=== PATIENT | female | born 1985 | race Caucasian/White ===

== ENCOUNTER → 2016-03-11 | Outpatient (CLI) | payer OTHER, MEDICAID ==
--- NOTE | 2016-03-11 09:08 | WOMENS IMAGING REPORT ---
EXAM DESCRIPTION: U/S ABDOMEN TOTAL COMPLETED DATE/TIME: 03/11/2016 8:01 am REASON FOR STUDY: R10.11 RUQ PAIN R10.11 RIGHT UPPER QUADRANT PAIN COMPARISON: Abdominal ultrasound 09/11/2014, 05/06/2014 CT abdomen pelvis 03/29/2014 TECHNIQUE: Dynamic and static grayscale images acquired of the abdomen and recorded on PACS. Additio nal selected color Doppler and spectral images recorded. LIMITATIONS: None. FINDINGS: PANCREAS: No masses. Visualized pancreatic duct normal caliber. LIVER: No masses. Echotexture normal. LIVER VASCULATURE: Normal directional flow of the main portal vein and hepatic veins. GALLBLADDER: No stones. Normal wall thickness. No pericholecystic fluid. ULTRASOUND-DETECTED LAMBERT'S SIGN: Negative. INTRAHEPATIC DUCTS AND COMMON DUCT: CBD and intrahepatic ducts normal caliber. No filling defects. INFERIOR VENA CAVA: Normal flow. AORTA: No aneurysm. RIGHT KIDNEY: Normal size. Normal echogenicity. No solid or suspicious masses. No hydronephros is. No calcifications. LEFT KIDNEY: Normal size. Normal echogenicity. No solid or suspicious masses. No hydronephrosi s. No calcifications. SPLEEN: Normal size. No solid masses. PERITONEAL AND PLEURAL SPACES: No ascites or effusions. OTHER: No other significant finding. TECHNICAL DOCUMENTATION: JOB ID: [id number] [employer]- All Rights Reserved
== END ==
LOC: WI 06:49
PROVIDERS: ATTEND Internal Medicine
DX: R10.11 Right upper quadrant pain (principal)
CPT/HCPCS: 76700

== ENCOUNTER → 2016-03-12 | Outpatient (CLI) | payer OTHER, MEDICAID | LOC: RAD 12:38 | PROVIDERS: ATTEND Internal Medicine | DX: R10.11 Right upper quadrant pain (principal) | CPT/HCPCS: 78227; A9537; Q9969; J2805 ==

== ENCOUNTER 2016-03-21 09:15 | Day surgery (SDC) | payer OTHER, MEDICAID ==
[~2016-03-21 09:15] MED LIST: DIPHENHYDRAMINE HCL 50 MG/ML VIAL ONE; EPINEPHRINE INJ 1 MG/10 ML DISP.SYRIN ONE; FLUMAZENIL INJ 0.5 MG/5 ML VIAL IV ONE; GLUCAGON,HUMAN RECOMB 1 MG INJ ONE; NALOXONE HCL INJ/PF 0.4 MG/1 ML SDV ONE; ONDANSETRON HCL INJ/PF 4 MG/2 ML SDV ONE; PROMETHAZINE HCL INJ 25 MG/1 ML VIAL ONE
[2016-03-21] MEDS: MIDAZOLAM 2 MG/2 ML INJ ONE ×4 (09:40→09:50)
[2016-03-21] MEDS: FENTANYL CITRATE INJ/PF 100 MCG/2 ML AMPUL ONE ×2 (09:42→09:55)
--- NOTE | 2016-03-21 10:16 | Operative Report ---
Operative Report DATE OF SURGERY: 03/21/16 Operative Report: The risks benefits and alternatives of the procedure explained to the patient in detail and informed consent is obtained that GIF Olympus video scope was inserted into the patient's mouth and hypopharynx the esophagus is identified intubated and insufflated the scope was then advanced through the esophagus stomach and duodenum retroflexion maneuver is done the esophagus stomach and first and second portions of the duodenum examined PREOPERATIVE DIAGNOSIS: Epigastric pain POSTOPERATIVE DIAGNOSIS: Gastritis status post biopsy OPERATION: EGD with biopsy SURGEON: DUNCAN AMBROSIO ANESTHESIA: Moderate Sedation - 8 mg Versed, 175 g of fentanyl. TISSUE REMOVED OR ALTERED: Gastric specimens obtained. COMPLICATIONS: None. ESTIMATED BLOOD LOSS: none. INTRAOPERATIVE FINDINGS: Normal esophagus. First and second portions of the duodenum are normal. No bleeding noted PROCEDURE: Patient tolerated procedure well. No immediate postprocedure complications are noted. Patient is discharged in good condition. Discharge date 03/21/2016. Discharge diet: Regular. Discharge activity: Regular. Follow-up in 2-3 weeks. Wait on biopsies. Patient is instructed to call the office or proceed to the emergency room if any further problems or questions.
[2016-03-21 11:02] VITALS: BP 118/79
== END 2016-03-21 11:10 | disposition home or self-care (01) ==
LOC: END 09:15
PROVIDERS: ATTEND Internal Medicine Gastroenterology
PROC: 0DB68ZX Excision of Stomach, Via Natural or Artificial Opening Endoscopic, Diagnostic (ICD-10-PCS; principal; 2016-03-21 09:30)
DX: K29.70 Gastritis, unspecified, without bleeding (principal); J45.909 Unspecified asthma, uncomplicated; F90.9 Attention-deficit hyperactivity disorder, unspecified type; F20.9 Schizophrenia, unspecified; F31.9 Bipolar disorder, unspecified; M41.9 Scoliosis, unspecified; Z87.891 Personal history of nicotine dependence; Z79.899 Other long term (current) drug therapy
CPT/HCPCS: 43239; 88305 ×2; J2250; J3010; J0171; J1200; J1610; J2310; J2405; J2550; J3490

== ENCOUNTER 2016-08-28 15:38 | Emergency (ER) | payer OTHER, MEDICAID ==
[2016-08-28 15:56] VITALS: BP 138/84
--- NOTE | 2016-08-28 16:36 | ER Document Report ---
ED Medical Screen (RME) - General Chief Complaint: Difficulty Swallowing Stated Complaint: CHEST PAIN Time Seen by Provider: 08/28/16 16:31 Notes: Patient is describing progressive difficulty swallowing since 3 AM yesterday morning. She has a history of GERD. She also had an upper endoscopy by Dr. Desir for a another problem a few months ago and he did not find any abnormality. TRAVEL OUTSIDE OF THE [place] IN LAST 30 DAYS: No COUNTRY TRAVELED TO/FROM: [place] - Related Data Allergies/Adverse Reactions: No Known Allergies Allergy (Verified 08/28/16 15:51) Past Medical History - Social History Chew tobacco use (# tins/day): No Frequency of alcohol use: None Drug Abuse: None - Past Medical History Cardiac Medical History: Denies: Hx Coronary Artery Disease, Hx Heart Attack, Hx Hypertension Pulmonary Medical History: Reports: Hx Asthma - USES AN INHALER NEEDED Denies: Hx Bronchitis, Hx COPD, Hx Pneumonia Neurological Medical History: Reports: Hx Migraine. Denies: Hx Cerebrovascular Accident, Hx Seizures - UNDETERMINED - NOT ON ANY MEDS Renal/ Medical History: Reports: Hx Ovarian Cysts. Denies: Hx Peritoneal Dialysis GI Medical History: Denies: Hx Hepatitis, Hx Hiatal Hernia, Hx Ulcer Musculoskeltal Medical History: Reports Hx Arthritis - BACK, SI JOINT Psychiatric Medical History: Reports: Hx Anxiety, Hx Bipolar Disorder, Hx Depression Infectious Medical History: Denies: Hx Hepatitis Surgical Hx: Negative Past Surgical History: Reports: Hx Appendectomy, Hx Gynecologic Surgery - D&C. Denies: Hx Hysterectomy, Hx Open Heart Surgery, Hx Pacemaker - Immunizations Immunizations up to date: Yes Hx Diphtheria, Pertussis, Tetanus Vaccination: Yes Physical Exam - Vital signs Vitals: Temp Pulse BP Pulse Ox 98.5 F 101 H 138/84 H 97 08/28/16 15:51 08/28/16 15:51 08/28/16 15:51 08/28/16 15:51 Course - Vital Signs Vital signs: Temp Pulse Resp BP Pulse Ox 98.5 F 101 H 138/84 H 97 08/28/16 15:51 08/28/16 15:51 08/28/16 15:51 08/28/16 15:51
[2016-08-28 17:21] LABS: ABSOLUTE BASOPHILS # (AUTO) 0.1 10^3/uL (0.0-0.2); ABSOLUTE EOSINOPHILS # (AUTO) 0.5 10^3/uL (0.0-0.6); ABSOLUTE LYMPHOCYTES (AUTO) 2.6 10^3/uL (0.5-4.7); ABSOLUTE MONOCYTES (AUTO) 1.1 10^3/uL (0.1-1.4); ABSOLUTE NEUT (AUTO) 9.9 10^3/uL (1.7-8.2); BASOPHILS % (AUTO) 0.5 % (0-2); EOSINOPHILS % (AUTO) 3.2 % (0-6); HEMOGLOBIN 13.6 g/dL (12.0-15.5); HGB HCT DIFFERENCE -1.2; LYMPHOCYTES % (AUTO) 18.2 % (13-45); MEAN CORPUSCULAR HEMOGLOBIN 28.5 pg (27.0-33.4); MEAN CORPUSCULAR HGB CONC 32.5 g/dL (32.0-36.0); MEAN CORPUSCULAR VOLUME 88 fl (80-97); MONOCYTES % (AUTO) 7.9 % (3-13); RED BLOOD COUNT 4.78 10^6/uL (3.72-5.28); RED CELL DISTRIBUTION WIDTH 13.3 % (11.5-14.0); SEGMENTED NEUTROPHILS % (AUTO) 70.2 % (42-78); WHITE BLOOD COUNT 14.1 10^3/uL (4.0-10.5)
[2016-08-28 17:29] LABS: ALANINE AMINOTRANSFERASE 37 U/L (9-52); ALBUMIN 3.9 g/dL (3.5-5.0); ALKALINE PHOSPHATASE 66 U/L (38-126); ANION GAP 13 (5-19); ASPARTATE AMINO TRANSFERASE 14 U/L (14-36); BILIRUBIN,DIRECT 0.3 mg/dL (0.0-0.4); BILIRUBIN,TOTAL 0.4 mg/dL (0.2-1.3); BLOOD UREA NITROGEN 8 mg/dL (7-20); CALCIUM 9.3 mg/dL (8.4-10.2); CARBON DIOXIDE 23 mmol/L (22-30); CHLORIDE 105 mmol/L (98-107); CREATININE RESULT 0.61 mg/dL (0.52-1.25); GLUCOSE 88 mg/dL (75-110); LIPASE 84.3 U/L (23-300); POTASSIUM 3.7 mmol/L (3.6-5.0); SODIUM 140.9 mmol/L (137-145)
--- NOTE | 2016-08-28 17:41 | RADIOLOGY REPORT (SQ) ---
EXAM DESCRIPTION: BARIUM SWALLOW ESOPHAGUS COMPLETED DATE/TIME: 08/28/2016 5:16 pm REASON FOR STUDY: Difficulty swallowing, even saliva and liquids. COMPARISON: CT abdomen pelvis 03/29/2014 Right upper quadrant ultrasound 03/11/2016 Hepatobiliary scan 03/12/2016 TECHNIQUE: Under fluoroscopic guidance, patient ingested thin barium, thick barium and effervescent crystals. Fluoroscopic spot images and routine radiographic images acquired and stored on PACS. 12 MM BARIUM TABLET GIVEN: No. LIMITATIONS: None. FLUOROSCOPY TIME: 15 seconds 15 series of fluoroscopic images saved to PACS. FINDINGS: NEUROMUSCULAR COORDINATION OF SWALLOW: Normal. No aspiration. ESOPHAGEAL MOTILITY: Normal peristalsis. No esophageal spasm. ESOPHAGEAL MUCOSA: Normal mucosa without masses or ulceration. GASTRO-ESOPHAGEAL JUNCTION: Small hiatal hernia. Mild gastroesophageal reflux NON-GI TRACT STRUCTURES: No significant finding. OTHER: Limited imaging of the stomach was performed. Prompt gastric emptying. There is loss of bertha jeff folds, question atrophic gastritis. Normal pylorus and duodenum. No gross evidence of gastric u lcer IMPRESSION: Small hiatal hernia with gastroesophageal reflux. No distal esophageal stricture. No i mpacted food bolus. COMMENT: Quality ID [id number]: Final reports for procedures using fluoroscopy that document radiation exp osure indices, or exposure time and number of fluorographic images (if radiation exposure indices are not available) TECHNICAL DOCUMENTATION: JOB ID: [id number] [employer]- All Rights Reserved
--- NOTE | 2016-08-28 17:54 | ER Document Report ---
ED General - General Chief Complaint: Difficulty Swallowing Stated Complaint: CHEST PAIN Time Seen by Provider: 08/28/16 16:31 Notes: Patient is describing progressive difficulty swallowing since 3 AM yesterday morning. She says she is having difficulty even swallowing saliva and water. She is not regurgitating these liquids and she is not actually choking on them, just having difficulty swallowing them because of pain they seem to produce in the front of her chest. She has a history of GERD although not on any current medications. She also just recently had an upper endoscopy by Dr. Desir for a another problem a few months ago and he did not find any abnormality denies any vomiting or diarrhea. When she takes a deep breath she notes some of this chest pain in the front of the chest. Patient has no history of any heart disease. PMH: control implant. Appendectomy. Diagnostic laparoscopy years ago that showed mild endometriosis. TRAVEL OUTSIDE OF THE [place] IN LAST 30 DAYS: No COUNTRY TRAVELED TO/FROM: [place] - Related Data Allergies/Adverse Reactions: No Known Allergies Allergy (Verified 08/28/16 15:51) Past Medical History - Social History Smoking Status: Never Smoker Chew tobacco use (# tins/day): No Frequency of alcohol use: None Drug Abuse: None Family History: Arthritis, Malignancy, DM, Reviewed & Not Pertinent Patient has suicidal ideation: No Patient has homicidal ideation: No Pulmonary Medical History: Reports: Hx Asthma - USES AN INHALER NEEDED Neurological Medical History: Reports: Hx Migraine Renal/ Medical History: Reports: Hx Ovarian Cysts GI Medical History: Denies: Hx Hepatitis, Hx Hiatal Hernia, Hx Ulcer Musculoskeltal Medical History: Reports Hx Arthritis - BACK, SI JOINT Psychiatric Medical History: Reports: Hx Anxiety, Hx Bipolar Disorder, Hx Depression Surgical Hx: Negative Past Surgical History: Reports: Hx Appendectomy, Hx Gynecologic Surgery - D&C - Immunizations Immunizations up to date: Yes Hx Diphtheria, Pertussis, Tetanus Vaccination: Yes Review of Systems - Review of Systems Notes: REVIEW OF SYSTEMS: CONSTITUTIONAL : Denies fever. EENT: Denies eye, ear, nose or mouth or throat pain or other symptoms. CARDIOVASCULAR: See HPI regarding chest pain. RESPIRATORY: Denies cough, chest congestion, or shortness of breath. GASTROINTESTINAL: Denies abdominal pain or nausea, vomiting, or diarrhea. GENITOURINARY: Denies difficulty or painful urinating, urinary frequency, blood in urine. MUSCULOSKELETAL: Denies back or neck pain. Denies joint pain or swelling. Denies leg pains. SKIN: Denies rash or skin lesions. NEUROLOGICAL: Denies LOC or altered mental status. Denies headache. Denies sensory loss or motor deficits. ALL OTHER SYSTEMS REVIEWED AND NEGATIVE. Physical Exam - Vital signs Vitals: Temp Pulse BP Pulse Ox 98.5 F 101 H 138/84 H 97 08/28/16 15:51 08/28/16 15:51 08/28/16 15:51 08/28/16 15:51 Interpretation: Normal - Notes Notes: PHYSICAL EXAMINATION: GENERAL: Well-appearing, in no acute distress. Anxious HEAD: Atraumatic, normocephalic. EYES: Pupils equal round and reactive to light, extraocular movements intact. ENT: oropharynx clear without exudates. Moist mucous membranes. NECK: Normal range of motion, supple. LUNGS: Breath sounds clear and equal bilaterally. No chest wall tenderness to press. HEART: Regular rate and rhythm without murmurs. ABDOMEN: Soft, nontender. No guarding or rebound. BACK: No tenderness throughout entire back. EXTREMITIES: Normal range of motion without pain. Negative Homans bilaterally. NEUROLOGICAL: Normal speech, normal gait. Normal sensory, motor, and reflex exams. Awake, alert, and oriented x3. Cranial nerves normal. SKIN: Warm, dry, no rashes. Course - Re-evaluation Re-evalutation: 08/28/16 20:50 Patient underwent a barium swallow which shows a hiatal hernia. Not sure if this is actually the source of her symptoms, but otherwise her workup is been essentially normal. - Vital Signs Vital signs: Temp Pulse Resp BP Pulse Ox 98.5 F 101 H 138/84 H 97 08/28/16 15:51 08/28/16 15:51 08/28/16 15:51 08/28/16 15:51 - Laboratory Result Diagrams: 08/28/16 16:50 08/28/16 16:50 Laboratory results interpreted by me: 08/28/16 16:50 WBC 14.1 H Absolute Neutrophils 9.9 H - Diagnostic Test Radiology reviewed: Image reviewed, Reports reviewed - Barium swallow shows hiatal hernia. - EKG Interpretation by Me EKG shows normal: Sinus rhythm Rate: Normal Rhythm: NSR Discharge - Discharge Clinical Impression: Chest pain, non-cardiac, Hiatal hernia with GERD Condition: Stable Disposition: HOME, SELF-CARE Additional Instructions: CHEST PAIN OF UNCLEAR CAUSE: The exact cause of your chest pain isn't clear. Fortunately, there is no evidence of a dangerous medical condition. Further testing may be required to find the source of the pain. Most often, we find that this pain is coming from the chest wall -- the muscles or rib joints in the chest. But chest pain can come from the lung and lung lining, the esophagus, the heart valves or heart lining, and even the stomach or gallbladder. Rest. Eat lightly until the pain is gone. We may prescribe medicine for pain and inflammation. You should call the physician immediately if the pain radiates to the shoulder, jaw or arms; if you start to run a fever or develop a cough; or if you develop shortness of breath, or other new or alarming symptoms. NORMAL EXAM AND WORKUP: At this time, your examination and workup show no significant abnormality. No significant abnormal physical findings were noted. All laboratory, EKG, and imaging (x-ray, CT scans, ultrasound) studies that were ordered show no significant abnormality. Although your examination and all studies that were ordered showed no significant abnormal finding, there are no examinations and no studies that are 100% accurate. There is always the possibility that some abnormality could exist and not be detected with physical examination or within the limits and capabilities of laboratory and other studies. You should return or follow up as you were instructed on your visit today for further evaluation if your symptoms do not resolve. Your barium swallow shows that you have a hiatal hernia. This may be the source of your discomfort and symptoms. I am prescribing some Prilosec and recommend you follow the following instructions for reducing acid in your esophagus and see if that improves her symptoms. ACID REFLUX DISEASE (GERD): Gastro-Esophageal Reflux Disease (GERD) is caused by stomach acid refluxing back up into the esophagus. The valve at the end of the esophagus may be weak. This is common in persons with a hiatal hernia. GERD symptoms can include indigestion, chest pain, heartburn, or food "sticking." Certain foods, alcohol, and aspirin can make GERD worse. Treatment depends on the severity. Usually, antacids or acid-suppressing medicines are used. When the esophagus is acutely inflamed, the physician will often prescribe membrane-protective drugs such as Carafate. Some patients benefit from medication such as Reglan that tightens the valve at the top of the stomach. Avoid those foods that bring on your symptoms. For many people, these foods are coffee, chocolate, onions, garlic, and carbonated drinks. Don't use alcohol, aspirin, caffeine, or tobacco. Don't eat late at night -- within 4 hours of bedtime. Don't over-eat. If necessary, elevate the head of your bed about 4 inches so that stomach acid will not roll up into your esophagus. Call the doctor if you develop severe chest pain, inability to swallow fluids, fever, or worsening symptoms. ANTACID THERAPY: You have been instructed to start antacid therapy. Antacids directly neutralize stomach acid. This is useful for acid irritation of the esophagus, gastritis, and ulcers. You should take two tablespoons of antacid one hour after each meal and three hours after each meal. If you are not eating, take the antacid every two hours. If you are using a concentrate (such as Maalox TC), use only one tablespoon. Many antacids affect the bowels. The most common problem is diarrhea. In this case, a pure aluminum hydroxide antacid (such as AlternaGel) can be substituted for some or all doses. If the problem is constipation, add a teaspoon of Milk of Magnesia to each dose. Call the doctor if you experience continued diarrhea or constipation, or if you develop lightheadedness, bloody stool or vomitus, severe abdominal pain, or black stool. PRILOSEC (ACID PUMP INHIBITOR): Prilosec (omeprazole) is an acid-pump inhibitor. It blocks the secretion of hydrogen ions in the acid-producing cells of the stomach. Prilosec keeps your stomach from making acid. Take all medication as prescribed, even after the pain is gone. Regular antacids may be added as needed if you have symptoms while taking this medicine. There are usually no side effects from this medication. Contact your doctor if there is fever, rash, yellow skin color, increasing abdominal pain, weakness, or unusual bruising. Return at once if you develop lightheadedness, black or bloody stool, or bloody vomitus. FOLLOW-UP CARE: If you have been referred to a physician for follow-up care, call the physician s office for an appointment as you were instructed or within the next two days. If you experience worsening or a significant change in your symptoms, notify the physician immediately or return to the Emergency Department at any time for re-evaluation. Prescriptions: Omeprazole Magnesium [Prilosec Otc] 20 mg PO DAILY #30 tablet.dr Referrals: PRANEETH NAIK MD [Primary Care Provider] - Follow up as needed
--- NOTE | 2016-08-28 18:02 | EKG REPORT ---
SEVERITY:- BORDERLINE ECG - SINUS RHYTHM PROBABLE LEFT ATRIAL ABNORMALITY INFERIOR Q WAVES, PROBABLY NORMAL VARIATION : Confirmed by: Joni Dominguez MD 28-Aug-2016 18:01:54
== END 2016-08-28 17:59 | disposition home or self-care (01) ==
LOC: ER 15:38
DX: K44.9 Diaphragmatic hernia without obstruction or gangrene (principal); K21.9 Gastro-esophageal reflux disease without esophagitis; R13.10 Dysphagia, unspecified; R07.89 Other chest pain
CPT/HCPCS: 36415; 74220; 80053; 83690; 85025; 93005; 93010; 99285

== ENCOUNTER → 2016-12-02 | Outpatient (CLI) | payer MEDICAID ==
--- NOTE | 2016-12-02 09:33 | RADIOLOGY REPORT ---
STRESS TEST REPORT PATIENT NAME: ROBERT ALBERTO ROOM#: DATE OF SERVICE: 12/02/2016 AGE: 31Y ORDER#: [id number] REFERRING MD: MARQUES PAUL M.D. INDICATION: Stabbing chest pains with abnormal EKG with abnormal echo in the interventricular septum. Chest pain is described as a pinching, stabbing pain and a dull ache. Coronary risk factors include family history of [place]. PROCEDURE PERFORMED: EKG treadmill stress test. REPORT Significant physical findings prior to stress testing showed a blood pressure of 119/76 and a heart rate of 88 beats per minute with no ectopy. Auscultation of the heart showed an S4 with no murmur. Resting 12-lead EKG showed normal sinus rhythm, 84 beats per minute, diffuse nonspecific ST-T changes especially in the inferior leads. PROCEDURE: Patient exercised on the standard [place] protocol. She walked a total of 7 minutes, reaching a peak heart rate of 171 beats per minute, which is 90% of the maximum predicted heart rate for age. The test was stopped because of maximum effort, heart rate achieved. Patient described symptoms of dull, aching chest pains prior to exercise test underneath her left breast. With increase in exercise, her chest dull ache went up to a 3/10 intensity but dissipated at around 4 minutes at a heart rate of 144, then recurred and was 3 going up 4/10 at peak exercise. Postexercise chest pain dissipated 1 minute and then returned to a dull ache. Exercise ECG showed no increased ST changes. Arrhythmias seen were PACs. Blood pressure response was normal. The peak exercise blood pressure was 156/75, double product 26 K. SUMMARY OF FINDINGS/IMPRESSION: 1. Chest pain symptoms at baseline prior to exercise stress, this increased to a maximum 4/10 intensity during exercise. The chest pains waxed and waned, totally dissipating 2 minutes postexercise. 2. Baseline ST changes diffuse, but especially in the inferior leads, with no increase in ST depressions on increasing exercise. 3. Normal blood pressure response. 4. PAC arrhythmias but no exercise induced atrial fibrillation. 5. Good exercise tolerance, good aerobic capacity, negative adequate EKG treadmill stress test. Recommend consider exercise MPI. INTERPRETING PHYSICIAN: MARQUES PAUL M.D. /: 1211M TT: 0906 ID: [id number] /: [id number] TD: [id number] JOB: [id number] cc:PRANEETH NAIK M.D., ANDRE KS M.D. > MTDReyes
== END ==
LOC: SP 07:48
PROVIDERS: ATTEND Internal Medicine Cardiovascular Disease
DX: R07.9 Chest pain, unspecified (principal)
CPT/HCPCS: 93017

== ENCOUNTER 2017-01-16 15:36 | Emergency (ER) | payer MEDICAID ==
--- NOTE | 2017-01-16 16:29 | ER Document Report ---
ED Medical Screen (RME) - General Chief Complaint: Abdominal Pain Stated Complaint: ABDOMINAL PAIN Time Seen by Provider: 01/16/17 16:24 Notes: Patient is having pain in her right upper quadrant into her right back for the past 3 weeks. She is also had this pain in the past and has had 2 ultrasounds of the gallbladder that were negative and had a negative HIDA scan. Her primary care provider is trying to get her set up to get a another imaging study , another ultrasound, of the gallbladder. Patient says she is not having any vomiting but has had diarrhea for the past 2 days. Denies any fever. Has had her appendix removed. Patient has been on amoxicillin for a chest cold and sinuses for the past week. Does not smoke. TRAVEL OUTSIDE OF THE [place] IN LAST 30 DAYS: No COUNTRY TRAVELED TO/FROM: [place] - Related Data Allergies/Adverse Reactions: No Known Allergies Allergy (Verified 01/16/17 15:39) Home Medications: Current Home Medications Oxycodone Myristate [Xtampza ER] 27 mg PO BID 01/16/17 [History] Past Medical History - Social History Chew tobacco use (# tins/day): No Frequency of alcohol use: None Drug Abuse: None - Past Medical History Cardiac Medical History: Denies: Hx Coronary Artery Disease, Hx Heart Attack, Hx Hypertension Pulmonary Medical History: Reports: Hx Asthma - USES AN INHALER NEEDED Denies: Hx Bronchitis, Hx COPD, Hx Pneumonia Neurological Medical History: Reports: Hx Migraine. Denies: Hx Cerebrovascular Accident, Hx Seizures - UNDETERMINED - NOT ON ANY MEDS Renal/ Medical History: Reports: Hx Ovarian Cysts. Denies: Hx Peritoneal Dialysis GI Medical History: Denies: Hx Hepatitis, Hx Hiatal Hernia, Hx Ulcer Musculoskeltal Medical History: Reports Hx Arthritis - BACK, SI JOINT Psychiatric Medical History: Reports: Hx Anxiety, Hx Bipolar Disorder, Hx Depression Infectious Medical History: Denies: Hx Hepatitis Past Surgical History: Reports: Hx Appendectomy, Hx Gynecologic Surgery - D&C. Denies: Hx Hysterectomy, Hx Open Heart Surgery, Hx Pacemaker - Immunizations Immunizations up to date: Yes Hx Diphtheria, Pertussis, Tetanus Vaccination: Yes Physical Exam - Vital signs Vitals: Temp Pulse Resp BP Pulse Ox 98.9 F 104 H 20 133/85 H 99 01/16/17 15:40 01/16/17 15:40 01/16/17 15:40 01/16/17 15:40 01/16/17 15:40 Course - Vital Signs Vital signs: Temp Pulse Resp BP Pulse Ox 98.9 F 104 H 20 133/85 H 99 01/16/17 15:40 01/16/17 15:40 01/16/17 15:40 01/16/17 15:40 01/16/17 15:40
[2017-01-16 17:09] LABS: ABSOLUTE BASOPHILS # (AUTO) 0.1 10^3/uL (0.0-0.2); ABSOLUTE EOSINOPHILS # (AUTO) 0.5 10^3/uL (0.0-0.6); ABSOLUTE LYMPHOCYTES (AUTO) 3.2 10^3/uL (0.5-4.7); ABSOLUTE MONOCYTES (AUTO) 0.8 10^3/uL (0.1-1.4); ABSOLUTE NEUT (AUTO) 6.6 10^3/uL (1.7-8.2); BASOPHILS % (AUTO) 1.2 % (0-2); EOSINOPHILS % (AUTO) 4.1 % (0-6); HEMATOCRIT 40.6 % (36.0-47.0); HEMOGLOBIN 14.1 g/dL (12.0-15.5); HGB HCT DIFFERENCE 1.7; LYMPHOCYTES % (AUTO) 28.4 % (13-45); MEAN CORPUSCULAR HEMOGLOBIN 30.3 pg (27.0-33.4); MEAN CORPUSCULAR HGB CONC 34.7 g/dL (32.0-36.0); MEAN CORPUSCULAR VOLUME 87 fl (80-97); MONOCYTES % (AUTO) 7.2 % (3-13); RED BLOOD COUNT 4.65 10^6/uL (3.72-5.28); SEGMENTED NEUTROPHILS % (AUTO) 59.1 % (42-78); WHITE BLOOD COUNT 11.2 10^3/uL (4.0-10.5)
[2017-01-16 17:27] LABS: APPEARANCE,URINE SLIGHTLY-CLOUDY; BILIRUBIN,URINE NEGATIVE (NEGATIVE); CALCIUM OXALATE CRYSTALS,URINE MODERATE /HPF; GLUCOSE, URINE NEGATIVE (NEGATIVE); KETONES,URINE NEGATIVE (NEGATIVE); LEUKOCYTE ESTERASE,URINE NEGATIVE (NEGATIVE); NITRITE,URINE NEGATIVE (NEGATIVE); PROTEIN,URINE NEGATIVE (NEGATIVE); URINE SPECIFIC GRAVITY 1.024; UROBILINOGEN,URINE NEGATIVE mg/dL (<2.0)
[2017-01-16 17:29] LABS: ALANINE AMINOTRANSFERASE 87 U/L (9-52); ALBUMIN 4.1 g/dL (3.5-5.0); ALKALINE PHOSPHATASE 84 U/L (38-126); ANION GAP 15 (5-19); ASPARTATE AMINO TRANSFERASE 39 U/L (14-36); BILIRUBIN,DIRECT 0.3 mg/dL (0.0-0.4); BILIRUBIN,TOTAL 0.3 mg/dL (0.2-1.3); BLOOD UREA NITROGEN 10 mg/dL (7-20); CALCIUM 9.6 mg/dL (8.4-10.2); CARBON DIOXIDE 24 mmol/L (22-30); CHLORIDE 105 mmol/L (98-107); CREATININE RESULT 0.64 mg/dL (0.52-1.25); GLUCOSE 91 mg/dL (75-110); LIPASE 142.9 U/L (23-300); POTASSIUM 4.1 mmol/L (3.6-5.0); SODIUM 144.4 mmol/L (137-145); TOTAL PROTEIN 6.6 g/dL (6.3-8.2)
--- NOTE | 2017-01-16 18:35 | ER Document Report ---
ED GI/ - General Mode of Arrival: Ambulatory Information source: Patient TRAVEL OUTSIDE OF THE [place] IN LAST 30 DAYS: No COUNTRY TRAVELED TO/FROM: [place] [facility] Patient complains to provider of: Abdominal pain, Diarrhea Location: [facility] <LATASHA WELLS - Last Filed: 01/16/17 19:48> <MOHANMINDIPRIMITIVO - Last Filed: 01/16/17 22:11> - General Chief Complaint: Abdominal Pain Stated Complaint: ABDOMINAL PAIN Time Seen by Provider: 01/16/17 16:24 Notes: Patient is a 31 year old female who presents to the emergency department complaining of right upper quadrant abdominal pain and right flank pain onset 5 weeks ago. Patients associated symptoms include diarrhea onset 2 days ago and decreased appetite. Patients symptoms are exacerbated by movement and sitting up. Patient states that she has had past ultrasounds of the gallbladder that appeared negative as well as a negative HIDA scan. Patients PCP set up an appointment on Thursday to have more imaging done on her gallbladder. Patient states that she has had diarrhea 7x today that she describes as explosive and watery. Patient denies any vomiting or fevers. Patient is currently taking Amoxicilin and Tessalon Perles for a chest cold. (LATASHA WELLS) - Related Data Allergies/Adverse Reactions: No Known Allergies Allergy (Verified 01/16/17 15:39) Home Medications: Current Home Medications Oxycodone Myristate [Xtampza ER] 27 mg PO BID 01/16/17 [History] Past Medical History - General Information source: Patient - Social History Smoking Status: Never Smoker Chew tobacco use (# tins/day): No Frequency of alcohol use: None Drug Abuse: None Family History: Arthritis, Malignancy, DM, Reviewed & Not Pertinent Patient has suicidal ideation: No Patient has homicidal ideation: No Pulmonary Medical History: Reports: Hx Asthma - USES AN INHALER NEEDED Neurological Medical History: Reports: Hx Migraine Renal/ Medical History: Reports: Hx Ovarian Cysts Musculoskeltal Medical History: Reports Hx Arthritis - BACK, SI JOINT Psychiatric Medical History: Reports: Hx Anxiety, Hx Bipolar Disorder, Hx Depression Past Surgical History: Reports: Hx Appendectomy, Hx Gynecologic Surgery - D&C - Immunizations Immunizations up to date: Yes Hx Diphtheria, Pertussis, Tetanus Vaccination: Yes <LATASHA WELLS - Last Filed: 01/16/17 19:48> Review of Systems - Review of Systems Constitutional: No symptoms reported EENT: No symptoms reported Cardiovascular: No symptoms reported Respiratory: No symptoms reported Gastrointestinal: See HPI, Abdominal pain, Diarrhea, Poor appetite Genitourinary: See HPI, Flank pain - right Female Genitourinary: No symptoms reported Musculoskeletal: No symptoms reported Skin: No symptoms reported Hematologic/Lymphatic: No symptoms reported Neurological/Psychological: No symptoms reported -: Yes All other systems reviewed and negative <LATASHA WELLS - Last Filed: 01/16/17 19:48> Physical Exam <LATASHA WELLS - Last Filed: 01/16/17 19:48> <PRIMITIVO AGUAYO - Last Filed: 01/16/17 22:11> - Vital signs Vitals: Temp Pulse Resp BP Pulse Ox 98.9 F 104 H 20 133/85 H 99 01/16/17 15:40 01/16/17 15:40 01/16/17 15:40 01/16/17 15:40 01/16/17 15:40 - Notes Notes: GENERAL: Alert, interacts well. No acute distress. HEAD: Normocephalic, atraumatic. EYES: Pupils equal, round, and reactive to light. Extraocular movements intact. ENT: Oral mucosa moist, tongue midline. Nares patent, no nasal septal hematoma, TM's intacts. Post nasal drip and cobblestoning. Clear rhinorrhea NECK: Full range of motion. Supple. Trachea midline. LUNGS: Clear to auscultation bilaterally, no wheezes, rales, or rhonchi. No respiratory distress. Dry cough. HEART: Mild tachycardia. No murmurs, gallops, or rubs. ABDOMEN: Soft, RUQ tender to palpation. Non-distended. Bowel sounds present in all 4 quadrants. Obese. + [place] Sign. EXTREMITIES: Moves all 4 extremities spontaneously. No edema, radial and dorsalis pedis pulses 2/4 bilaterally. No cyanosis. NEUROLOGICAL: Alert and oriented x3. Normal speech. PSYCH: Normal affect, normal mood. SKIN: Warm, dry, normal turgor. No rashes or lesions noted. (LATASHA WELLS) Course - Laboratory Result Diagrams: 01/16/17 16:47 01/16/17 16:47 <LATASHA WELLS - Last Filed: 01/16/17 19:48> - Laboratory Result Diagrams: 01/16/17 16:47 01/16/17 16:47 <PRIMITIVO AGUAYO - Last Filed: 01/16/17 22:11> - Re-evaluation Re-evalutation: 01/16/17 21:25 CBC shows slight leukocytosis 11.2, CMP unremarkable with the exception of minimally elevated LFTs, lipase normal, hCG negative, urinalysis shows small blood, 4 RBCs. Moderate calcium oxalate crystals, I did perform a renal protocol CAT scan to look for kidney stone, there was no evidence of kidney stone or pancreatitis, gallbladder was contracted and appeared normal on the CAT scan, appendix was surgically absent, there was a large amount of stool in the ascending and transverse colon, no acute explanation for her pain was seen on CAT scan. Gallbladder ultrasound was performed given the location of the pain and the tenderness in the right upper quadrant on examination, there was no evidence of gallstones, gallbladder wall thickening or pericholecystic fluid on the ultrasound. Discussed with patient that we have no cause for her acute pain today, no evidence of anything that would need antibiotics or surgery. Discussed with patient the importance of following up with a filament tester as an outpatient as she has had her gallbladder image multiple times and has always been normal I seriously doubt that this pain is coming from her gallbladder. Patient may wish to consider a colonoscopy at some point but for her chronic intermittent right upper quadrant abdominal pain that continues to recur patient will need further workup as an outpatient. Recommended a trial of antacids and stool softeners which patient is only somewhat interested in trying. Patient will be discharged home. 01/16/17 21:27 For the patient's cough and nasal congestion I recommend she use over-the- counter decongestants, she hardly takes Tessalon Perles and she should use nasal saline rinses as well. Patient's primary care physician already started her on amoxicillin. I see no indication of bacterial infection at this time, no indication to change to a different antibiotic particularly since I do not think this is bacterial I think it is viral. (PRIMITIVO AGUAYO) - Vital Signs Vital signs: Temp Pulse Resp BP Pulse Ox 99.4 F 93 16 146/96 H 98 01/16/17 21:38 01/16/17 21:38 01/16/17 21:38 01/16/17 21:38 01/16/17 21:38 - Laboratory Laboratory results interpreted by me: 01/16/17 01/16/17 01/16/17 16:47 16:47 16:47 WBC 11.2 H AST 39 H ALT 87 H Urine Blood SMALL H Discharge <LATASHA WELLS - Last Filed: 01/16/17 19:48> <PRIMITIVO AGUAYO - Last Filed: 01/16/17 22:11> - Discharge Clinical Impression: Right upper quadrant abdominal pain of unknown etiology, Upper respiratory infection with cough and congestion Hypertension Qualifiers: Hypertension type: unspecified Qualified Code(s): I10 - Essential (primary) hypertension Condition: Stable Disposition: HOME, SELF-CARE Additional Instructions: Please dissolve 1 scoop of MiraLAX in a glass of water once a day to treat constipation. You may increase to twice a day if needed to create soft bowel movements and you may decrease to every other day if you develop diarrhea. Please use nasal saline rinses such as a NetiPot or NeilMed Sinus Rinses. Please consider continuing to follow-up with Dr. Desir as an outpatient. Please continue using the Tessalon Perles for cough. Forms: Elevated Blood Pressure Referrals: PRANEETH NAIK MD [Primary Care Provider] - Follow up in 1 week DUNCAN DESIR MD [ACTIVE STAFF] - Follow up in 1 month Scribe Attestation: 01/16/17 22:11 I personally performed the services described in the documentation, reviewed and edited the documentation which was dictated to the scribe in my presence, and it accurately records my words and actions. (PRIMITIVO AGUAYO) Scribe Documentation - Scribe Written by Scribe:: Santiago Loomis, 01/16/2017 19:12 acting as scribe for :: Ursula <LATASHA WELLS - Last Filed: 01/16/17 19:48>
--- NOTE | 2017-01-16 19:42 | RADIOLOGY REPORT (SQ) ---
EXAM DESCRIPTION: CT LTD RENAL STONE PROTOCOL ON COMPLETED DATE/TIME: 01/16/2017 7:18 pm REASON FOR STUDY: RUQ pain, +brooks's sign COMPARISON: Hepatobiliary scan 03/12/2016 Abdominal ultrasound 03/11/2016 CT abdomen pelvis 03/29/2014 TECHNIQUE: CT scan of the abdomen and pelvis performed without intravenous or oral contrast. Images reviewed with lung, soft tissue, and bone windows. Reconstructed coronal and sagittal MPR images revi ewed. All images stored on PACS. All CT scanners at this facility use dose modulation, iterative reconstruction, and/or weight based d osing when appropriate to reduce radiation dose to as low as reasonably achievable (ALARA). [facility]: Dose Right [facility]: CareDose [facility]: Dose Right [facility]: Teradose 4D [facility]: [employer]ics RADIATION DOSE: CT Rad equipment meets quality standard of care and radiation dose reduction techniq ues were employed. CTDIvol: 17.5 mGy. DLP: 965 mGy-cm.mGy. LIMITATIONS: None. FINDINGS: LOWER CHEST: Small hiatal hernia. Lung bases clear. NON-CONTRASTED LIVER, SPLEEN, ADRENALS: Evaluation limited by lack of IV contrast. No identified sign ificant masses. PANCREAS: No masses. No peripancreatic inflammatory changes. GALLBLADDER: Contracted. No radiopaque stones. No pericholecystic fluid by CT. RIGHT KIDNEY AND URETER: No suspicious masses. Assessment limited by lack of IV contrast. No signif icant calcifications. No hydronephrosis or hydroureter. LEFT KIDNEY AND URETER: No suspicious masses. Assessment limited by lack of IV contrast. No signifi cant calcifications. No hydronephrosis or hydroureter. AORTA AND RETROPERITONEUM: No aneurysm. No retroperitoneal masses or adenopathy. BOWEL AND PERITONEAL CAVITY: No obvious masses or inflammatory changes. No free fluid. Large amount of stool in the ascending and transverse colon. APPENDIX: Surgically absent PELVIS, BLADDER, AND ABDOMINAL WALL:No abnormal masses. No free fluid. Bladder normal. Normal size f emale pelvic organs BONES: No significant findings. OTHER: Battery pack for a neurostimulator over the left gluteal region. IMPRESSION: Large amount of stool in the ascending and transverse colon. Contracted gallbladder, no gross radiodense stones COMMENT: Quality ID # [id number]: Final reports with documentation of one or more dose reduction techniques (e.g., Automated exposure control, adjustment of the mA and/or kV according to patient size, use of iterative reconstruction technique) TECHNICAL DOCUMENTATION: JOB ID: [id number] [employer]- All Rights Reserved
--- NOTE | 2017-01-16 20:52 | RADIOLOGY REPORT (SQ) ---
EXAM DESCRIPTION: U/S ABDOMEN LIMITED W/O DOP COMPLETED DATE/TIME: 01/16/2017 8:06 pm REASON FOR STUDY: right flank pain, small hematuria COMPARISON: CT abdomen pelvis 01/16/2017 Abdominal ultrasound 03/11/2016, 09/11/2014 TECHNIQUE: Dynamic and static grayscale images acquired of the abdomen and recorded on PACS. Additio nal selected color Doppler and spectral images recorded. LIMITATIONS: Midline upper abdominal bowel gas FINDINGS: PANCREAS: Not well seen LIVER: No masses. Echotexture normal. LIVER VASCULATURE: Normal directional flow of the main portal vein and hepatic veins. GALLBLADDER: No stones. Normal wall thickness. No pericholecystic fluid. ULTRASOUND-DETECTED LAMBERT'S SIGN: Negative. INTRAHEPATIC DUCTS AND COMMON DUCT: CBD and intrahepatic ducts normal caliber. No filling defects. INFERIOR VENA CAVA: Normal flow. AORTA: No aneurysm. RIGHT KIDNEY: Normal size. Normal echogenicity. No solid or suspicious masses. No hydronephrosis. No calcifications. PERITONEAL AND RIGHT PLEURAL SPACE: No ascites or effusions. OTHER: No other significant findings. IMPRESSION: Pancreas not well seen No gallstones, gallbladder wall thickening, or pericholecystic fluid No right-sided hydronephrosis. TECHNICAL DOCUMENTATION: JOB ID: [id number] [employer]- All Rights Reserved
[2017-01-16 21:38] VITALS: BP 146/96
== END 2017-01-16 21:38 | disposition home or self-care (01) ==
LOC: ER 15:36
DX: R10.11 Right upper quadrant pain (principal); J06.9 Acute upper respiratory infection, unspecified; I10 Essential (primary) hypertension; R19.7 Diarrhea, unspecified
CPT/HCPCS: 36415; 76380; 76705; 80053; 81001; 83690; 84703; 85025; 99284

== ENCOUNTER → 2017-03-13 | Outpatient (CLI) | payer BC, MEDICAID, OTHER ==
--- NOTE | 2017-03-15 16:05 | RADIOLOGY REPORT (SQ) ---
EXAM DESCRIPTION: MRI HEAD COMBO COMPLETED DATE/TIME: 03/13/2017 9:45 pm REASON FOR STUDY: HEMORRHAGE IN OPTIC NERVE SHEATH, RIGHT EYE H47.021 HEMORRHAGE IN OPTIC NERVE SHE ATH, RIGHT EYE COMPARISON: CT brain 01/31/2014 TECHNIQUE: Multiplanar imaging includes noncontrasted T1, T2, FLAIR, diffusion with ADC map and post gadolinium contrast T1 sequences. Images stored on PACS. CONTRAST TYPE AND DOSE: 20 mL Multihance. RENAL FUNCTION: GFR > 60. LIMITATIONS: Routine brain protocol, thin section imaging through the orbits was not obtained. FINDINGS: ANATOMY: No anomalies. Normal vascular flow voids. Pituitary fossa normal. CSF SPACES: Normal in size and contour. No hemorrhage. CEREBRUM: Sulci and gyri normal in size and contour. Normal white matter signal on FLAIR imaging. No evidence of hemorrhage, mass, or extraaxial fluid collection. No abnormal enhancement post contrast. POSTERIOR FOSSA: No signal alteration. No hemorrhage. No edema, masses, or mass effect. Internal dionisio tory canals, cerebellopontine angles, mastoids normal. No enhancing lesions. No abnormal enhancement post contrast. DIFFUSION IMAGING: Negative for acute or subacute infarction. ORBITS: No masses. Globes normal. PARANASAL SINUSES: No fluid levels. Mucosa normal. OTHER: No other significant finding. IMPRESSION: NORMAL MRI OF THE BRAIN WITHOUT AND WITH INTRAVENOUS GADOLINIUM CONTRAST. EVIDENCE OF ACUTE STROKE: NO. TECHNICAL DOCUMENTATION: JOB ID: [id number] [employer]- All Rights Reserved
== END ==
LOC: RAD 20:02
PROVIDERS: ATTEND Family Medicine
DX: H47.021 Hemorrhage in optic nerve sheath, right eye (principal)
CPT/HCPCS: 70553; A9577

== ENCOUNTER → 2017-03-24 | Outpatient (CLI) | payer MEDICAID ==
[~2017-03-24] MED LIST changes: -DIPHENHYDRAMINE HCL 50 MG/ML VIAL ONE; -EPINEPHRINE INJ 1 MG/10 ML DISP.SYRIN ONE; -FLUMAZENIL INJ 0.5 MG/5 ML VIAL IV ONE; -GLUCAGON,HUMAN RECOMB 1 MG INJ ONE; -NALOXONE HCL INJ/PF 0.4 MG/1 ML SDV ONE; -ONDANSETRON HCL INJ/PF 4 MG/2 ML SDV ONE; -PROMETHAZINE HCL INJ 25 MG/1 ML VIAL ONE; +REGADENOSON INJ 0.4 MG/5 ML DISP.SYRIN IV ONE
--- NOTE | 2017-03-24 22:08 | RADIOLOGY REPORT ---
STRESS TEST REPORT PATIENT NAME: ROBERT ALBERTO ROOM#: DATE OF SERVICE: 03/24/2017 AGE: 32Y ORDER#: [id number] REFERRING MD: MARQUES PAUL M.D. TEST PERFORMED: Rest/stress single-isotope Cardiolite SPECT imaging with IV Lexiscan stress and gated SPECT imaging. INDICATION: For assessment of chest pains. CLINICAL HISTORY: This 32-year-old female with no known coronary artery disease has coronary risk factors of family history of heart disease, no personal history of hypercholesterolemia, diabetes, hypertension, nor smoking. REPORT Patient received IV Lexiscan 0.4 mg infused over 10 seconds and flushed. The resting heart rate was 106 BPM and increased to 136 BPM at end infusion. The resting blood pressure was 122/70 and remained about the same at 126/80 at end infusion. Patient had no symptoms of chest pains, mild headache felt. Resting 12-lead EKG showed sinus tachycardia, 106 BPM, with nonspecific ST-T changes in the anterior leaf. At end infusion, slightly increased T inversion was seen in the anterior leads, lasting 1 minute. Myocardial perfusion imaging was performed at rest 60 minutes following the injection of 15.61 mCi of Cardiolite. Ten seconds after the IV Lexiscan injection, 46.7 mCi of Cardiolite was injected and flushed. Gated post-stress tomographic imaging was performed 90 minutes after stress. Resting images were suboptimal because there was significant liver uptake superimposed on the inferior wall of the left ventricle. This is further complicated by severe breast attenuation of the left ventricle. SUMMARY OF FINDINGS/IMPRESSION: The overall quality of the study is fair. There was significant breast attenuation on both of the rest and stress studies and there was intense liver uptake superimposed on the inferior wall of the left ventricle during rest images, unable to correct despite delayed imaging. The left ventricular cavity is noted to be normal in size on both the rest and stress studies. There is no evidence of abnormal transient ischemic dilatation of the left ventricle. The SPECT images show no evidence of any IV Lexiscan inducible reversible ischemia and there were no fixed perfusion defects. The gated SPECT imaging showed normal motion and contraction of all the LV segments. The left ventricular ejection fraction was calculated to be 49%, minimally reduced. IMPRESSION: Myocardial perfusion imaging is normal. There is no IV Lexiscan induced reversible ischemia or fixed perfusion defect. Overall, left ventricular systolic function is mildly reduced and there were no regional wall motion abnormalities seen. No prior studies for comparison. INTERPRETING PHYSICIAN: MARQUES PAUL M.D. /: [id number] TT: 2117 ID: [id number] /: [id number] TD: [id number] JOB: [id number] cc:MARQUES PAUL M.D. > [facility]
== END ==
LOC: RAD 06:32
PROVIDERS: ATTEND Internal Medicine Cardiovascular Disease
DX: R07.9 Chest pain, unspecified (principal)
CPT/HCPCS: 93017; 78452; A9500; J2785; Q9969

== ENCOUNTER 2018-01-06 12:09 | Emergency (ER) | payer OTHER, MEDICAID ==
[2018-01-06] MEDS ORDERED: IBUPROFEN 600 MG TABLET PO ONE (12:53)
[2018-01-06] MEDS ORDERED: METHOCARBAMOL 750 MG TABLET PO ONE (12:54)
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
[2018-01-06 14:05] LABS: URINE AMPHETAMINES SCREEN NEGATIVE; URINE BARBITURATES SCREEN NEGATIVE; URINE BENZODIAZEPINES SCREEN UNCONFIRMED POSITIVE; URINE COCAINE SCREEN NEGATIVE; URINE MARIJUANA (THC) SCREEN NEGATIVE; URINE METHADONE SCREEN NEGATIVE; URINE PHENCYCLIDINE SCREEN NEGATIVE
[2018-01-06 14:59] VITALS: BP 126/79
== END 2018-01-06 15:00 | disposition home or self-care (01) ==
LOC: ER 12:09
DX: R51 Headache (principal); M54.6 Pain in thoracic spine; M54.2 Cervicalgia; M25.511 Pain in right shoulder; V89.2XXA Person injured in unspecified motor-vehicle accident, traffic, initial encounter
CPT/HCPCS: 99284; 80307; J3490

== ENCOUNTER → 2018-06-25 | Outpatient (CLI) | payer MEDICAID ==
--- NOTE | 2018-06-25 18:43 | EKG REPORT ---
SEVERITY:- OTHERWISE NORMAL ECG - SINUS RHYTHM : Confirmed by: Leanne Mccarthy 25-Jun-2018 18:42:58
== END ==
LOC: OD 09:16
PROVIDERS: ATTEND Nurse Practitioner Family
DX: Z86.79 Personal history of other diseases of the circulatory system (principal)
CPT/HCPCS: 93005; 93010

== ENCOUNTER 2018-11-17 15:15 | Emergency (ER) | payer MEDICAID ==
--- NOTE | 2018-11-17 15:38 | ER Document Report ---
ED Medical Screen (RME) - General Stated Complaint: CHEST PAIN Time Seen by Provider: 11/17/18 15:33 Primary Care Provider: DONTE COOPER FNP-BC [NO LOCAL MD] - Follow up as needed Mode of Arrival: Ambulatory Information source: Patient Notes: This 33-year-old female 6-1/2 weeks G2, P1 presents emergency department with midsternal left-sided lower chest pain coming and going for the past few days. Reports it is constantly achy rates it 1-2 over 5 with episodes of sharp pain. Denies nausea vomiting diarrhea. Reports also right upper quad epigastric pain that started today after she ate a robin sandwich. Denies pain with void. Denies vaginal bleeding. I have greeted and performed a rapid initial assessment of this patient. A comprehensive ED assessment and evaluation of the patient, analysis of test results and completion of the medical decision making process will be conducted by additional ED providers. Dictation of this chart was performed using voice recognition software; therefore, there may be some unintended grammatical errors. TRAVEL OUTSIDE OF THE [place] IN LAST 30 DAYS: No - Related Data Allergies/Adverse Reactions: No Known Allergies Allergy (Verified 01/06/18 12:10) Past Medical History - Past Medical History Cardiac Medical History: Denies: Hx Coronary Artery Disease, Hx Heart Attack, Hx Hypertension Pulmonary Medical History: Reports: Hx Asthma - USES AN INHALER NEEDED Denies: Hx Bronchitis, Hx COPD, Hx Pneumonia Neurological Medical History: Reports: Hx Migraine. Denies: Hx Cerebrovascular Accident, Hx Seizures - UNDETERMINED - NOT ON ANY MEDS Renal/ Medical History: Reports: Hx Ovarian Cysts. Denies: Hx Peritoneal Dialysis GI Medical History: Denies: Hx Hepatitis, Hx Hiatal Hernia, Hx Ulcer Musculoskeltal Medical History: Reports Hx Arthritis - BACK, SI JOINT Psychiatric Medical History: Reports: Hx Anxiety, Hx Bipolar Disorder, Hx Depression Infectious Medical History: Denies: Hx Hepatitis Past Surgical History: Reports: Hx Appendectomy, Hx Gynecologic Surgery - D&C. Denies: Hx Hysterectomy, Hx Open Heart Surgery, Hx Pacemaker - Immunizations Immunizations up to date: Yes Hx Diphtheria, Pertussis, Tetanus Vaccination: Yes Physical Exam - Vital signs Vitals: Temp Pulse Resp BP Pulse Ox 98.3 F 73 18 134/75 H 97 11/17/18 15:29 11/17/18 15:29 11/17/18 15:29 11/17/18 15:29 11/17/18 15:29 Course - Vital Signs Vital signs: Temp Pulse Resp BP Pulse Ox 98.3 F 73 18 134/75 H 97 11/17/18 15:29 11/17/18 15:29 11/17/18 15:29 11/17/18 15:29 11/17/18 15:29 - Laboratory Result Diagrams: 11/17/18 15:50 11/17/18 15:50 Laboratory results interpreted by me: 11/17/18 11/17/18 11/17/18 15:50 15:50 15:50 WBC 11.1 H Calcium 10.4 H Beta HCG, Quant 63234.00 H Urine Ascorbic Acid 40 H Doctor's Discharge - Discharge Referrals: DONTE COOPER, DATA SYSTEMS MANAGER-BC [NO LOCAL MD] - Follow up as needed
[2018-11-17 16:03] LABS: ABSOLUTE BASOPHILS # (AUTO) 0.1 10^3/uL (0.0-0.2); ABSOLUTE EOSINOPHILS # (AUTO) 0.2 10^3/uL (0.0-0.6); ABSOLUTE LYMPHOCYTES (AUTO) 2.4 10^3/uL (0.5-4.7); ABSOLUTE MONOCYTES (AUTO) 0.8 10^3/uL (0.1-1.4); ABSOLUTE NEUT (AUTO) 7.6 10^3/uL (1.7-8.2); BASOPHILS % (AUTO) 0.8 % (0-2); HEMATOCRIT 40.4 % (36.0-47.0); HEMOGLOBIN 13.8 g/dL (12.0-15.5); LYMPHOCYTES % (AUTO) 21.3 % (13-45); MEAN CORPUSCULAR HEMOGLOBIN 30.5 pg (27.0-33.4); MEAN CORPUSCULAR HGB CONC 34.2 g/dL (32.0-36.0); MEAN CORPUSCULAR VOLUME 89 fl (80-97); MONOCYTES % (AUTO) 7.3 % (3-13); PLATELET COUNT 316 10^3/uL (150-450); RED BLOOD COUNT 4.53 10^6/uL (3.72-5.28); RED CELL DISTRIBUTION WIDTH 13.4 % (11.5-14.0); SEGMENTED NEUTROPHILS % (AUTO) 68.6 % (42-78); TOTAL CELLS COUNTED % (AUTO) 100 %; WHITE BLOOD COUNT 11.1 10^3/uL (4.0-10.5)
[2018-11-17 16:21] LABS: ALBUMIN 4.1 g/dL (3.5-5.0); ALKALINE PHOSPHATASE 57 U/L (38-126); ANION GAP 9 (5-19); APPEARANCE,URINE CLOUDY; ASPARTATE AMINO TRANSFERASE 34 U/L (14-36); BILIRUBIN,DIRECT 0.1 mg/dL (0.0-0.4); BILIRUBIN,TOTAL 0.3 mg/dL (0.2-1.3); BILIRUBIN,URINE NEGATIVE (NEGATIVE); BLOOD UREA NITROGEN 14 mg/dL (7-20); CALCIUM 10.4 mg/dL (8.4-10.2); CARBON DIOXIDE 27 mmol/L (22-30); CHLORIDE 103 mmol/L (98-107); COLOR,URINE YELLOW; GLUCOSE 91 mg/dL (75-110); GLUCOSE, URINE NEGATIVE (NEGATIVE); KETONES,URINE NEGATIVE (NEGATIVE); LEUKOCYTE ESTERASE,URINE NEGATIVE (NEGATIVE); NITRITE,URINE NEGATIVE (NEGATIVE); POTASSIUM 4.1 mmol/L (3.6-5.0); PROTEIN,URINE NEGATIVE (NEGATIVE); TOTAL PROTEIN 6.9 g/dL (6.3-8.2); URINE SPECIFIC GRAVITY 1.018; UROBILINOGEN,URINE NEGATIVE mg/dL (<2.0)
--- NOTE | 2018-11-17 17:53 | RADIOLOGY REPORT (SQ) ---
EXAM DESCRIPTION: U/S ABDOMEN LIMITED W/O DOP COMPLETED DATE/TIME: 11/17/2018 5:38 pm REASON FOR STUDY: ruq abd pain COMPARISON: 01/16/2017. TECHNIQUE: Dynamic and static grayscale images acquired of the abdomen and recorded on PACS. Additio nal selected color Doppler and spectral images recorded. LIMITATIONS: Study limited due to acoustical interference from fat or from air in the bowel. FINDINGS: PANCREAS: Poorly seen secondary to acoustical interference from fat or from air in the bow el. No visualized masses. Duct normal caliber as seen. LIVER: No masses. No dilated ducts. LIVER VASCULATURE: Normal directional flow of the main portal vein and hepatic veins. GALLBLADDER: No stones. Normal wall thickness. No pericholecystic fluid. ULTRASOUND-DETECTED LAMBERT'S SIGN: Negative. INTRAHEPATIC DUCTS AND COMMON DUCT:CBD and intrahepatic ducts normal caliber. No filling defects. INFERIOR VENA CAVA: Normal flow. AORTA: No aneurysm. RIGHT KIDNEY: Normal size. Normal echogenicity. No solid or suspicious masses. No hydronephrosis. No calcifications. PERITONEAL AND PLEURAL SPACES: No ascites or effusions. OTHER: No other significant finding. IMPRESSION: NO SIGNIFICANT FINDING IN THE VISUALIZED ABDOMEN. TECHNICAL DOCUMENTATION: JOB ID: [id number] [employer]- All Rights Reserved Reading location - IP/workstation name: [email or web address]
--- NOTE | 2018-11-17 17:55 | RADIOLOGY REPORT (SQ) ---
EXAM DESCRIPTION: U/S OB TRANSVAGINAL W/O DOP COMPLETED DATE/TIME: 11/17/2018 5:38 pm REASON FOR STUDY: preg abd pain COMPARISON: None. TECHNIQUE: Transvaginal static and realtime grayscale images acquired of the pelvis. Additional teressa cted spectral and color Doppler images recorded. All images stored on PACs. [facility]03,[id number]. CLINICAL DATES: 6 week 3 day. LIMITATIONS: None. FINDINGS: FETUS: Single Living intrauterine . ULTRASOUND EGA: 6 week 1 day. ULTRASOUND TOAN: 07/12/2019. EFW: Not applicable less than 20 weeks. CRL: 0.33 cm. FHR: 106 beats per minute. SURVEY: No visualized anomalies. AMNIOTIC FLUID: Adequate amount. PLACENTA: Not yet developed due to early gestation. SUBCHORIONIC BLEED: No. SIZE OF BLEED: Not applicable. UTERUS: No masses. No anomalies. CERVICAL LENGTH: 2.4 cm. Closed. RIGHT ADNEXA: Ovary not identified due to poor acoustical window. No adnexal free fluid. No adnexal masses. LEFT ADNEXA: Normal ovary with normal vascular flow. No adnexal free fluid. No adnexal masses. FREE FLUID: Small amount of free fluid in the cul-de-sac. OTHER: No other significant finding. IMPRESSION: LIVING INTRAUTERINE . EGA 6 WEEK 1 DAY. Trimester of : First trimester - 0 to 13 weeks. TECHNICAL DOCUMENTATION: JOB ID: [id number] [employer]- All Rights Reserved rev Reading location - IP/workstation name: [email or web address]
--- NOTE | 2018-11-17 19:54 | ER Document Report ---
ED General - General Chief Complaint: Chest Pain Stated Complaint: CHEST PAIN Time Seen by Provider: 11/17/18 15:33 Primary Care Provider: DONTE COOPER FNP-BC [NO LOCAL MD] - Follow up as needed Mode of Arrival: Ambulatory TRAVEL OUTSIDE OF THE [place] IN LAST 30 DAYS: No - HPI Notes: 33-year-old female initially seen by physician in triage. Patient presents with some transient midepigastric and right upper quadrant pain with some left lower parasternal pain. She has a history of chronic issues with both, she been worked up extensively in the past for gallbladder disease including multiple ultrasounds which were negative and a negative HIDA scan. States the chest pain is been ongoing for the last week and she has had in the past. Throbbing, aching at times. Nonpleuritic. Now gone. Moderate intensity, gradual onset, nonradiating. States the majority of her symptoms to come on today after eating a piled up robin sandwich. Nonradiating, gradual onset. Moderate intensity. No other modifying factors, no other associated symptoms, no other provocative or palliative factors. - Related Data Allergies/Adverse Reactions: No Known Allergies Allergy (Verified 01/06/18 12:10) Past Medical History - General Information source: Patient - Social History Smoking Status: Never Smoker Frequency of alcohol use: None Drug Abuse: None Family History: Arthritis, Malignancy, DM, Reviewed & Not Pertinent Patient has suicidal ideation: No Patient has homicidal ideation: No - Medical History Medical History: Other - Includes current - Past Medical History Cardiac Medical History: Denies: Hx Coronary Artery Disease, Hx Heart Attack, Hx Hypertension Pulmonary Medical History: Reports: Hx Asthma - USES AN INHALER NEEDED Denies: Hx Bronchitis, Hx COPD, Hx Pneumonia Neurological Medical History: Reports: Hx Migraine. Denies: Hx Cerebrovascular Accident, Hx Seizures - UNDETERMINED - NOT ON ANY MEDS Renal/ Medical History: Reports: Hx Ovarian Cysts. Denies: Hx Peritoneal Dialysis GI Medical History: Denies: Hx Hepatitis, Hx Hiatal Hernia, Hx Ulcer Musculoskeletal Medical History: Reports Hx Arthritis - BACK, SI JOINT Psychiatric Medical History: Reports: Hx Anxiety, Hx Bipolar Disorder, Hx Depression Infectious Medical History: Denies: Hx Hepatitis Past Surgical History: Reports: Hx Appendectomy, Hx Gynecologic Surgery - D&C. Denies: Hx Hysterectomy, Hx Open Heart Surgery, Hx Pacemaker - Immunizations Immunizations up to date: Yes Hx Diphtheria, Pertussis, Tetanus Vaccination: Yes Review of Systems - Review of Systems Notes: Review of systems as in the history of present illness, otherwise negative x 10 systems. Physical Exam - Vital signs Vitals: Temp Pulse Resp BP Pulse Ox 98.3 F 73 18 134/75 H 97 11/17/18 15:29 11/17/18 15:29 11/17/18 15:11/17/18 15:11/17/18 15:29 - Notes Notes: General: Well developed . HEENT: Normocephalic, atraumatic. Pupils equal round reactive to light. No JVD. Chest: No trauma. Respiratory: Good air exchange, normal excursion. Cardiac: Regular rhythm. No murmurs or gallops. Abdomen: Soft, benign. Nondistended. Nontender. Back: No asymmetry or gross abnormality. Motor: Grossly normal power and tone. Neurologic: Alert, nonfocal. Cranial nerves II-12 are intact. Sensation intact. Vascular: Well perfused. Normal peripheral pulses. Skin: No petechiae or purpura. Course - Re-evaluation Re-evalutation: 11/17/18 19:52 Patient was evaluated by the [facility] provider prior to my evaluation. Studies / interventions have been ordered by this provider and may still be pending. Patient is done well throughout ED course. A well-appearing 33-year-old female with atypical chest and abdominal pain is undergone extensive work-up in the past. She has had an extensive work-up repeated prior to my evaluation, this includes transabdominal and transvaginal ultrasonography as well as extensive laboratory evaluation. These are all unremarkable. She has benign examination, is low risk for venous trauma embolism, low risk for ACS or any intrathoracic emergency. This point I believe she is safe for discharge home, will follow close with her OB GEN and primary care doctor, return if worsening. - Vital Signs Vital signs: Temp Pulse Resp BP Pulse Ox 98.3 F 73 18 134/75 H 97 11/17/18 15:29 11/17/18 15:29 11/17/18 15:29 11/17/18 15:29 11/17/18 15:29 - Laboratory Result Diagrams: 11/17/18 15:50 11/17/18 15:50 Laboratory results interpreted by me: 11/17/18 11/17/18 11/17/18 15:50 15:50 15:50 WBC 11.1 H Calcium 10.4 H Beta HCG, Quant 98683.00 H Urine Ascorbic Acid 40 H Discharge - Discharge Clinical Impression: Atypical chest pain Abdominal pain Qualifiers: Abdominal location: upper abdomen, unspecified Qualified Code(s): R10.10 - Upper abdominal pain, unspecified Disposition: HOME, SELF-CARE Instructions: Abdominal Pain ([facility]), Chest Pain of Unclear Cause ([facility]) Referrals: DONTE COOPER FNP-BC [NO LOCAL MD] - Follow up in 3-5 days
[2018-11-17 20:10] VITALS: BP 110/72
--- NOTE | 2018-11-18 09:17 | EKG REPORT ---
SEVERITY:- BORDERLINE ECG - SINUS ARRHYTHMIA, RATE 49-81 INFERIOR Q WAVES, PROBABLY NORMAL VARIATION : Confirmed by: Leanne Mccarthy 18-Nov-2018 09:16:27
== END 2018-11-17 20:20 | disposition home or self-care (01) ==
LOC: ER 15:15
DX: R07.89 Other chest pain (principal); R10.10 Upper abdominal pain, unspecified; R10.13 Epigastric pain; R10.11 Right upper quadrant pain; R10.30 Lower abdominal pain, unspecified; J45.909 Unspecified asthma, uncomplicated
CPT/HCPCS: 36415; 76705; 76817; 80053; 81001; 83690; 84702; 85025; 93005; 93010; 99285

== ENCOUNTER 2019-04-05 19:37 | Outpatient (CLI) | payer MEDICAID ==
[2019-04-05 20:52] LABS: APPEARANCE,URINE CLEAR; BILIRUBIN,URINE NEGATIVE (NEGATIVE); COLOR,URINE YELLOW; GLUCOSE, URINE NEGATIVE (NEGATIVE); KETONES,URINE NEGATIVE (NEGATIVE); LEUKOCYTE ESTERASE,URINE NEGATIVE (NEGATIVE); NITRITE,URINE NEGATIVE (NEGATIVE); PROTEIN,URINE NEGATIVE (NEGATIVE); URINE SPECIFIC GRAVITY 1.015; UROBILINOGEN,URINE NEGATIVE mg/dL (<2.0)
[2019-04-05 21:09] LABS: URINE AMPHETAMINES SCREEN NEGATIVE; URINE BARBITURATES SCREEN NEGATIVE; URINE BENZODIAZEPINES SCREEN NEGATIVE; URINE COCAINE SCREEN NEGATIVE; URINE MARIJUANA (THC) SCREEN NEGATIVE; URINE METHADONE SCREEN NEGATIVE; URINE PHENCYCLIDINE SCREEN NEGATIVE
== END 2019-04-05 21:33 | disposition home or self-care (01) ==
LOC: LC 19:37
PROVIDERS: ATTEND Obstetrics & Gynecology
PROC: 4A1HXCZ Monitoring of Products of Conception, Cardiac Rate, External Approach (ICD-10-PCS; principal; 2019-04-05)
DX: O36.8120 Decreased fetal movements, second trimester, not applicable or unspecified (principal); Z3A.26 26 weeks gestation of pregnancy
CPT/HCPCS: 80307; 81001